=== PATIENT | male | born 1960 | race African-American/Black ===

== ENCOUNTER 2022-10-20 14:52 | Emergency (ER) | payer OTHER, MEDICAID ==
[2022-10-20] MEDS ORDERED: Morphine 4 MG/ML VIAL ONE (16:07)
[2022-10-20] MEDS ORDERED: Lidocaine 2% PF 5 ML VIAL ONE (16:15)
[2022-10-20] MEDS ORDERED: Bacitracin 1 PK ONE (17:06)
== END 2022-10-20 17:14 | disposition home or self-care (01) ==
LOC: ERS 14:52
DX: S61.412A Laceration without foreign body of left hand, initial encounter (principal); W18.02XA Striking against glass with subsequent fall, initial encounter; Y92.009 Unspecified place in unspecified non-institutional (private) residence as the place of occurrence of the external cause; Z23 Encounter for immunization
CPT/HCPCS: 12001; 96374; J2001; J2270